=== PATIENT | male | born 1935 | race Caucasian/White ===

== ENCOUNTER 2020-02-15 10:12 | Emergency (ER) | payer MEDICARE, OTHER ==
[~2020-02-15] VITALS: Ht 175.3 cm; Wt 90.0 kg
[2020-02-15 10:36] LABS: BASO % 1 % (0-3); EOS # 0.1 x10^3/uL (0.0-0.7); EOS % 3 % (0-3); HEMATOCRIT 36.2 % (39.0-53.0); HEMOGLOBIN 12.4 g/dL (13.0-17.5); LYMPH # 0.9 x10^3/uL (1.0-4.8); LYMPH % 20 % (24-48); MEAN CORPUSCULAR HEMOGLOBIN 31 pg (25-35); MEAN CORPUSCULAR HGB CONC 34 g/dL (31-37); MEAN CORPUSCULAR VOLUME 90 fL (79-100); MONO # 0.6 x10^3/uL (0.0-1.1); MONO % 12 % (0-9); NEUT # 3.1 x10^3/uL (1.8-7.7); NEUT % 65 % (31-73); PLATELET COUNT 164 x10^3/uL (140-400); RED BLOOD COUNT 4.04 x10^6/uL (4.30-5.70); RED CELL DISTRIBUTION WIDTH 13.6 % (11.5-14.5); WHITE BLOOD COUNT 4.8 x10^3/uL (4.0-11.0)
--- NOTE | 2020-02-15 10:39 | PHYS DOC ---
General Adult HPI: HPI: 84-year-old male past medical history significant for dementia, diabetes, hypothyroidism, hyperlipidemia, hypertension and CKD, presents the ED from [facility] with concern for hyperglycemia in the 400s. History limited due to patient's dementia. Patient cannot explain events of today or recall his routine medications. Pt has no active complaints. Paperwork reviewed by myself. On no AC. Patient receives detemir insulin 22 units nightly and is on a sliding scale with aspart, can give 14 units of aspart 1 time for high glucose levels. Review of Systems: Review of Systems: ROS: Limited due to dementia Heart Score: Risk Factors: Risk Factors: DM, Current or recent (<one month) smoker, HTN, HLP, family history of CAD, obesity. Risk Scores: Score 0 - 3: 2.5% MACE over next 6 weeks - Discharge Home Score 4 - 6: 20.3% MACE over next 6 weeks - Admit for Clinical Observation Score 7 - 10: 72.7% MACE over next 6 weeks - Early Invasive Strategies Physical Exam: PE: Constitutional: Well developed, well nourished, no acute distress, non-toxic appearance. HENT: Normocephalic, atraumatic, Eyes: EOMI, conjunctiva normal, no discharge. Neck: Normal range of motion, supple, Cardiovascular: S1/2 present, regular rhythm Lungs & Thorax: Speaking in full sentences, bilateral equal chest rise, no tachypnea or increased work of breathing Abdomen: soft, no tenderness, Skin: Warm, dry, no erythema, no rash. [] Back: No tenderness, no CVA tenderness. [] Extremities: No tenderness, no cyanosis, no edema Neurologic: Alert but not oriented, normal motor function, normal sensory fun ction, no focal deficits noted. [] Psychologic: Affect normal, judgement normal, mood normal. [] Current Patient Data: Labs: Laboratory Tests Test 02/15/20 10:24 02/15/20 10:25 Glucose (Fingerstick) 136 mg/dL (70-99) H White Blood Count 4.8 x10^3/uL (4.0-11.0) Red Blood Count 4.04 x10^6/uL (4.30-5.70) L Hemoglobin 12.4 g/dL (13.0-17.5) L Hematocrit 36.2 % (39.0-53.0) L Mean Corpuscular Volume 90 fL (79-100) Mean Corpuscular Hemoglobin 31 pg (25-35) Mean Corpuscular Hemoglobin Concent 34 g/dL (31-37) Red Cell Distribution Width 13.6 % (11.5-14.5) Platelet Count 164 x10^3/uL (140-400) Neutrophils (%) (Auto) 65 % (31-73) Lymphocytes (%) (Auto) 20 % (24-48) L Monocytes (%) (Auto) 12 % (0-9) H Eosinophils (%) (Auto) 3 % (0-3) Basophils (%) (Auto) 1 % (0-3) Neutrophils # (Auto) 3.1 x10^3/uL (1.8-7.7) Lymphocytes # (Auto) 0.9 x10^3/uL (1.0-4.8) L Monocytes # (Auto) 0.6 x10^3/uL (0.0-1.1) Eosinophils # (Auto) 0.1 x10^3/uL (0.0-0.7) Basophils # (Auto) 0.0 x10^3/uL (0.0-0.2) Laboratory Tests 02/15/20 10:25 EKG: EKG: Sinus rhythm at 60 bpm, left axis deviation, QRS 122, QTC 444, right bundle bra nch block with T waves in V1, V2, V3 which could represent strain, T wave inversion in lead III, no ST elevations or ST depressions Radiology/Procedures: Radiology/Procedures: IMAGING REPORT Signed PATIENT: DEBORAH PEREZ ACCOUNT: [id number] : 1935 LOCATION: ER AGE: 84 SEX: M EXAM STATUS: PRE ER ORD. PHYSICIAN: HIAMNSHU DELONG DO REASON: hyperglycemia PROCEDURE: PORTABLE CHEST 1V EXAM: PORTABLE CHEST 1V INDICATION: Reason: hyperglycemia / Spl. Instructions: / History: . TECHNIQUE: Single view COMPARISON: None FINDINGS: Left MRI compatible dual chamber pacemaker is present. The heart size is normal. The great vessels appear unremarkable. There is no hilar or mediastinal mass. Right infrahilar hazy opacity is present. There is no pleural effusion or pneumothorax. There are no significant osseous abnormalities. IMPRESSION: Hazy right infrahilar opacity, possibly reflecting subsegmental atelectasis. Early pneumonic infiltrate not excluded. Electronically signed by: Deejay Tyler MD (02/15/2020 10:57 AM) [id number] DICTATED and SIGNED BY: DEEJAY TYLER MD DATE: 02/15/20 [id number] Course & Med Decision Making: Course & Med Decision Making Pertinent Labs and Imaging studies reviewed. (See chart for details) Patient presented to the ED with concern for hyperglycemia. I am suspecting patient was given 14 units of aspart prior to arrival. Chest x-ray concerning for possible infrahilar infiltrate. Urinalysis is contaminated. Will prescribe antibiotics to cover both uti/pna and DC back to residential facility. No concern for DKA/sepsis, does not meet sirs criteria. Labs show renal insufficiency with no prior for baseline comparison. Strict ED return precautions were given for fever, hypertension, fast heart rate, sepsis return precautions. Encouraged urgent outpatient follow-up with PMD and nephrology. Life-threatening processes were considered but are low suspicion at this time, given history and physical exam. Pt was educated on all prescription medications and adverse effects. All patient's questions were answered and pt was stable at time of discharge. Life/limb-threatening differential includes but is not limited to, end organ damage/sepsis, DKA, trauma/abuse/neglect, neurologic deficit, alcohol/drug ingestion, toxidrome, suicidal/homicidal ideations plans or attempts, psychosis or mental illness resulting in self neglect and inability to care for self. I spoken with the patient and her caregivers. I explained the patient's condition, diagnoses and treatment plan based on the information available to me at this time. I have answered the patient and her caregiver's questions and addressed any concerns. The patient and her caregivers have a good understanding of patient's diagnosis, condition and treatment plan as can be expected at this point. Vital signs have been stable. Patient's condition is stable and appropriate for discharge from the emergency department. Patient will pursue further outpatient evaluation with primary care physician or other designated or consulting physician as outlined in the discharge instructions. The patient and/or caregivers are agreeable to this plan of care and follow-up instructions have been explained in detail. The patient and/or caregivers have received these instructions in written form and have expressed an understanding of the discharge instructions. The patient and/or caregivers are aware that any significant change of condition or worsening of symptoms should prompt immediate return to this or the closest emergency department or call to 911. Libra Disclaimer: Libra Disclaimer: This electronic medical record was generated, in whole or in part, using a voice recognition dictation system. Departure Departure Impression: Primary Impression: Renal insufficiency Additional Impressions: UTI (urinary tract infection) Atypical pneumonia Disposition: 01 DC HOME SELF CARE/HOMELESS Condition: STABLE Patient Instructions: Pneumonia, Adult, Urinary Tract Infection Additional Instructions: FOLLOW UP WITH NEPHROLOGY: creatinine 1.4 today [facility] [place] Address: [address] [place] [address] EMERGENCY DEPARTMENT GENERAL DISCHARGE INSTRUCTIONS Thank you for coming to [facility] Emergency Department (ED) today and trusting us with you care. We trust that you had a positive experience in our Emergency Department. If you wish to speak to the department management, you may call the Director at [phone]. YOUR FOLLOW UP INSTRUCTIONS ARE FOLLOWS: 1. Do you have a private Doctor? If you do not have a private doctor, please ask for a resource list of physicians or clinics that may be able to assist you with follow up care. 2. The Emergency Physicain has interpreted your x-rays. The X-Ray specialist will also review them. If there is a change in the findings, you will be notified in 48 hours when at all possible. 3. A lab test or culture has been done, your results will be reviewed and you will be notified if you need a change in treatment. ADDITIONAL INSTRUCTIONS AND INFORMATION: 1. Your care today has been supervised by a physician who is specially trained in emergency care. Many problems require more than one evaluation for a complete diagnosis and treatment. We recommend that you schedule your follow up appointment as recommended to ensure complete treatment of you illness or injury. If you are unable to obtain follow up care and continue to have a problem, or if your condition worsens, we recommend that you return to the ED. 2. We are not able to safely determine your condition over the phone nor are we able to give sound medical advice over the phone. For these safety reasons, if you call for medical advice we will ask you to come to the ED for further evaluation. 3. If you have any questions regarding these discharge instructions please call the ED at [phone]. SAFETY INFORMATION: In the interest of safety, wellness, and injury prevention; we encourage you to wear your sealbelt, if you smoke; quite smoking, and we encourage family to use a protective helmet for bicycling and other sporting events that present an increased risk for head injury. IF YOUR SYMPTOMS WORSEN OR NEW SYMPTOMS DEVELOP, OR YOU HAVE CONCERNS ABOUT YOUR CONDITION; OR IF YOUR CONDITION WORSENS WHILE YOU ARE WAITING FOR YOUR FOLLOW UP A PPOINTMENT; EITHER CONTACT YOUR PRIMARY CARE DOCTOR, THE PHYSICIAN WHOSE NAME AND NUMBER YOU WERE Mai FERRIS, OR RETURN TO THE ED IMMEDIATELY. Scripts Doxycycline Hyclate (DOXYCYCLINE HYCLATE) 100 Mg Capsule 1 CAP PO BID for 14 Days, #28 CAP Prov: HIMANSHU DELONG DO 02/15/20 HIMANSHU DELONG DO Feb 15, 2020 10:39
[2020-02-15 10:46] LABS: CALCIUM 9.8 mg/dL (8.5-10.1); CREATININE 1.4 mg/dL (0.7-1.3); GFR 48.1; POTASSIUM 3.8 mmol/L (3.5-5.1)
[2020-02-15 10:52] LABS: ALBUMIN/GLOBULIN RATIO 0.9 (1.0-1.7); MAGNESIUM 1.9 mg/dL (1.8-2.4); TOTAL BILIRUBIN 0.4 mg/dL (0.2-1.0); TOTAL PROTEIN 6.3 g/dL (6.4-8.2)
[2020-02-15 10:57] LABS: BILIRUBIN,URINE SMALL (NEG); CLARITY,URINE CLEAR; COLOR,URINE YELLOW; NITRITE,URINE NEGATIVE (NEG); PH,URINE 5.5 (<5.0-8.0); PROTEIN,URINE NEGATIVE (NEG-TRACE); UROBILINOGEN,URINE 0.2 mg/dL (0.2 mg/dL)
--- NOTE | 2020-02-15 11:00 | RAD ---
EXAM: PORTABLE CHEST 1V INDICATION: Reason: hyperglycemia / Spl. Instructions: / History: . TECHNIQUE: Single view COMPARISON: None FINDINGS: Left MRI compatible dual chamber pacemaker is present. The heart size is normal. The great vessels appear unremarkable. There is no hilar or mediastinal mass. Right infrahilar hazy opacity is present. There is no pleural effusion or pneumothorax. There are no significant osseous abnormalities. IMPRESSION: Hazy right infrahilar opacity, possibly reflecting subsegmental atelectasis. Early pneumonic infiltrate not excluded. Electronically signed by: Luke Tyler MD (02/15/2020 10:57 AM) [id number]
[2020-02-15 11:18] LABS: BACTERIA,URINE FEW /HPF (0-FEW)
[2020-02-15] MEDS ORDERED: FOSFOMYCIN TROMETHAMINE 3 GM PACKET PO ONE (11:30)
[2020-02-15] MEDS ORDERED: DOXY100C2 PO (11:36)
[2020-02-15 12:46] VITALS: BP 125/64
--- NOTE | 2020-02-16 07:35 | EKG ---
[facility] [address] [place] [address] Test Date: 2020-02-15 Test Time: 10:53:00 Pat Name: DEBORAH PEREZ Department: Room: Gender: M Ironer: : 1935 Requested By: HIMANSHU DELONG Order Number: [id number] Reading MD: Fredi Wells Measurements Intervals [place] Rate: 60 P: 6 FL: 258 QRS: -45 QRSD: 122 T: 10 QT: 444 QTc: 444 Interpretive Statements ATRIAL PACED RHYTHM PROLONGED FL INTERVAL ABNORMAL LEFT AXIS DEVIATION LEFT ANTERIOR FASCICULAR BLOCK RIGHT BUNDLE BRANCH BLOCK ABNORMAL ECG RI6.01 No previous ECG available for comparison Electronically Signed On 02-17-2020 10:41:41 DIRECTOR ORACLE DATABASE by Fredi Wells
== END 2020-02-15 13:50 | disposition home or self-care (01) ==
LOC: ER 10:12
DX: E11.22 Type 2 diabetes mellitus with diabetic chronic kidney disease (principal); I12.9 Hypertensive chronic kidney disease with stage 1 through stage 4 chronic kidney disease, or unspecified chronic kidney disease; N39.0 Urinary tract infection, site not specified; J18.9 Pneumonia, unspecified organism; E11.65 Type 2 diabetes mellitus with hyperglycemia; N18.9 Chronic kidney disease, unspecified; E03.9 Hypothyroidism, unspecified; F03.90 Unspecified dementia, unspecified severity, without behavioral disturbance, psychotic disturbance, mood disturbance, and anxiety; E78.5 Hyperlipidemia, unspecified
CPT/HCPCS: 36415; 71045; 80053; 81001; 82962; 83735; 84484; 85025; 87086; 93005; 99285-25

== ENCOUNTER 2020-03-20 09:17 | Emergency (ER) | payer MEDICARE, OTHER ==
[~2020-03-20] VITALS: Ht 180.3 cm; Wt 75.0 kg
[~2020-03-20 09:17] MED LIST: ACET325T21 PO; AMLO-186 PO; ASCO500C PO; ASPI-886 PO; ATOR10TA60 PO; CARV12.511 PO; CYAN100031 PO; DONE10TA61 PO; DOXY100C2 PO; ESCITALOPRAM OX10 MG PO; FERR325T14 PO; INSU100I17 SQ; INSU100V13 SQ; LEVO150T5 PO; MAGN400T5 PO; MELA3TAB43 PO; MEMA10TA PO; MULT-246 PO; NITR100C62 PO; PANT40TA77 PO; QUET25TA5 PO; cholecalciferol PO; folic acid PO
[2020-03-20] MEDS ORDERED: IV DEXTROSE 10% 500 ML IV ONE (09:45)
[2020-03-20 09:58] LABS: CALCIUM 8.7 mg/dL (8.5-10.1); CREATININE 0.9 mg/dL (0.7-1.3); POTASSIUM 3.4 mmol/L (3.5-5.1)
[2020-03-20 09:58] LABS: BASO % 1 % (0-3); EOS # 0.4 x10^3/uL (0.0-0.7); EOS % 6 % (0-3); HEMATOCRIT 31.5 % (39.0-53.0); HEMOGLOBIN 10.7 g/dL (13.0-17.5); LYMPH # 0.6 x10^3/uL (1.0-4.8); LYMPH % 9 % (24-48); MEAN CORPUSCULAR HEMOGLOBIN 31 pg (25-35); MEAN CORPUSCULAR HGB CONC 34 g/dL (31-37); MEAN CORPUSCULAR VOLUME 92 fL (79-100); MONO # 0.4 x10^3/uL (0.0-1.1); MONO % 7 % (0-9); NEUT # 5.2 x10^3/uL (1.8-7.7); NEUT % 78 % (31-73); PLATELET COUNT 227 x10^3/uL (140-400); RED BLOOD COUNT 3.44 x10^6/uL (4.30-5.70); RED CELL DISTRIBUTION WIDTH 16.6 % (11.5-14.5); WHITE BLOOD COUNT 6.7 x10^3/uL (4.0-11.0)
[2020-03-20 10:03] LABS: ALBUMIN 2.4 g/dL (3.4-5.0); ALBUMIN/GLOBULIN RATIO 0.7 (1.0-1.7); MAGNESIUM 1.9 mg/dL (1.8-2.4); TOTAL BILIRUBIN 0.5 mg/dL (0.2-1.0); TOTAL PROTEIN 5.8 g/dL (6.4-8.2)
--- NOTE | 2020-03-20 10:31 | PHYS DOC ---
Past Medical History Past Medical History: Dementia, Diabetes-Type II, GERD, High Cholesterol, Hypothyroid Additional Past Medical Histor: CKD; covid 19 Past Surgical History: Pacemaker Smoking Status: Unknown if ever smoked Alcohol Use: None General Adult EDM: Chief Complaint: HYPOGLYCEMIA HPI: HPI: Patient is a 84 year old male who was [facility] due to low blood sugar. Patient has history of diabetic, he is on 22 unit of Levemir at night. This morning at 6:45 AM his blood sugar was 88. Patient was at the dinner this morning to have breakfast when he was acting confused. They checked his blood sugar again and it was 34. He was given Glucagon pill and EMS was called to take him here for evaluation. Patient had the same episode yesterday. Patient was diagnosed with COVID-19 INFECTION THE EARLY PART OF LAST MONTH. NO REPORT OF FEVER, NO SHORTNESS OF AIR, NO COUGH, NO CHEST PAIN, NO HEADACHE. EMS CHECKED HIS BLOOD SUGAR AND IT WAS 64. Review of Systems: Review of Systems: Constitutional: Denies fever or chills. [] Eyes: Denies change in visual acuity. [] HENT: Denies nasal congestion or sore throat. [] Respiratory: Denies cough or shortness of breath. [] Cardiovascular: Denies chest pain or edema. [] GI: Denies abdominal pain, nausea, vomiting, bloody stools or diarrhea. [] : Denies dysuria. [] Musculoskeletal: Denies back pain or joint pain. [] Integument: Denies rash. [] Neurologic: Denies headache, focal weakness or sensory changes. POSITIVE FOR GENERALIZED WEAKNESS. Endocrine: Denies polyuria or polydipsia. [] Lymphatic: Denies swollen glands. [] Psychiatric: Denies depression or anxiety. [] Heart Score: Risk Factors: Risk Factors: DM, Current or recent (<one month) smoker, HTN, HLP, family history of CAD, obesity. Risk Scores: Score 0 - 3: 2.5% MACE over next 6 weeks - Discharge Home Score 4 - 6: 20.3% MACE over next 6 weeks - Admit for Clinical Observation Score 7 - 10: 72.7% MACE over next 6 weeks - Early Invasive Strategies Current Medications: Current Medications Medications (Trade) Dose Ordered Sig/Ebony Start Time Stop Time Status Last Admin Dose Admin Dextrose 500 ml @ 0 mls/hr 1X ONCE 1/2/21 09:45 03/20/20 09:46 DC 03/20/20 09:55 999 MLS/HR Allergies: Allergies: Allergies Coded Allergies Type Severity Reaction Last Updated Verified haloperidol Allergy Severe 03/18/20 Yes olanzapine Allergy Severe 03/18/20 Yes levofloxacin Allergy Intermediate 02/15/20 Yes lisinopril Allergy Intermediate 02/15/20 Yes lorazepam Allergy Intermediate 02/15/20 Yes metronidazole Allergy Intermediate 02/15/20 Yes Physical Exam: PE: Constitutional: Well developed, well nourished, no acute distress, non-toxic appearance. [] HENT: Normocephalic, atraumatic, bilateral external ears normal, oropharynx moist, no oral exudates, nose normal. [] Eyes: PERRLA, EOMI, conjunctiva normal, no discharge. [] Neck: Normal range of motion, no tenderness, supple, no stridor. [] Cardiovascular:Heart rate regular rhythm, no murmur [] Lungs & Thorax: Bilateral breath sounds clear to auscultation [] Abdomen: Bowel sounds normal, soft, no tenderness, no masses, no pulsatile masses. [] Skin: Warm, dry, no erythema, no rash. [] Back: No tenderness, no CVA tenderness. [] Extremities: No tenderness, no cyanosis, no clubbing, ROM intact, no edema. [] Neurologic: Alert and oriented X 3, normal motor function, normal sensory function, no focal deficits noted. [] Psychologic: Affect normal, judgement normal, mood normal. [] Current Patient Data: Labs: Laboratory Tests Test 03/20/20 09:22 03/20/20 09:29 03/20/20 09:38 Glucose (Fingerstick) 56 mg/dL (70-99) L Sodium Level 145 mmol/L (136-145) Potassium Level 3.4 mmol/L (3.5-5.1) L Chloride Level 110 mmol/L (98-107) H Carbon Dioxide Level 29 mmol/L (21-32) Anion Gap 6 (6-14) Blood Urea Nitrogen 17 mg/dL (8-26) Creatinine 0.9 mg/dL (0.7-1.3) Estimated GFR (Cockcroft-Gault) 80.0 BUN/Creatinine Ratio 19 (6-20) Glucose Level 50 mg/dL (70-99) L Calcium Level 8.7 mg/dL (8.5-10.1) Magnesium Level 1.9 mg/dL (1.8-2.4) Total Bilirubin 0.5 mg/dL (0.2-1.0) Aspartate Amino Transferase (AST) 20 U/L (15-37) Alanine Aminotransferase (ALT) 19 U/L (16-63) Alkaline Phosphatase 56 U/L (46-116) Total Protein 5.8 g/dL (6.4-8.2) L Albumin 2.4 g/dL (3.4-5.0) L Albumin/Globulin Ratio 0.7 (1.0-1.7) L White Blood Count 6.7 x10^3/uL (4.0-11.0) Red Blood Count 3.44 x10^6/uL (4.30-5.70) L Hemoglobin 10.7 g/dL (13.0-17.5) L Hematocrit 31.5 % (39.0-53.0) L Mean Corpuscular Volume 92 fL (79-100) Mean Corpuscular Hemoglobin 31 pg (25-35) Mean Corpuscular Hemoglobin Concent 34 g/dL (31-37) Red Cell Distribution Width 16.6 % (11.5-14.5) H Platelet Count 227 x10^3/uL (140-400) Neutrophils (%) (Auto) 78 % (31-73) H Lymphocytes (%) (Auto) 9 % (24-48) L Monocytes (%) (Auto) 7 % (0-9) Eosinophils (%) (Auto) 6 % (0-3) H Basophils (%) (Auto) 1 % (0-3) Neutrophils # (Auto) 5.2 x10^3/uL (1.8-7.7) Lymphocytes # (Auto) 0.6 x10^3/uL (1.0-4.8) L Monocytes # (Auto) 0.4 x10^3/uL (0.0-1.1) Eosinophils # (Auto) 0.4 x10^3/uL (0.0-0.7) Basophils # (Auto) 0.0 x10^3/uL (0.0-0.2) Laboratory Tests 03/20/20 09:38 Laboratory Tests 03/20/20 09:29 Vital Signs: Vital Signs Date Time Temp Pulse Resp B/P (MAP) Pulse Ox O2 Delivery O2 Flow Rate FiO2 03/20/20 09:17 96.6 60 16 149/75 (99) 98 Room Air 96.6 EKG: EKG: [] Radiology/Procedures: Radiology/Procedures: [] Course & Med Decision Making: Course & Med Decision Making Pertinent Labs and Imaging studies reviewed. (See chart for details) Patient was given D10 IN THE ER. He was given food to eat. He was awake, alert. His blood sugar has been stabilized. Will [facility]. His [facility] doctor will need to adjust the insulin dose at n ight. He will need to eat breakfast promptly when he is awaken in the morning. Dragon Disclaimer: Dragon Disclaimer: This electronic medical record was generated, in whole or in part, using a voice recognition dictation system. Departure Departure Impression: Primary Impression: Hypoglycemia due to insulin Disposition: 01 DC HOME SELF CARE/HOMELESS Condition: STABLE Referrals: ROBYN FAUST MD (PCP) follow up with your doctor on Sunday for reevaluation Patient Instructions: Hypoglycemia (Low Blood Sugar) Additional Instructions: INSULIN DOSE AT NIGHT NEEDS TO BE REDUCED TO 15 UNITS STARTING TONIGHT. MILKA WILLIAMSON DO Mar 20, 2020 10:31
[2020-03-20 12:24] VITALS: BP 147/70
== END 2020-03-20 12:47 | disposition home or self-care (01) ==
LOC: ER 09:17
DX: E10.649 Type 1 diabetes mellitus with hypoglycemia without coma (principal); T38.3X5A Adverse effect of insulin and oral hypoglycemic [antidiabetic] drugs, initial encounter; R41.0 Disorientation, unspecified; K21.9 Gastro-esophageal reflux disease without esophagitis; E78.00 Pure hypercholesterolemia, unspecified; E03.9 Hypothyroidism, unspecified; F03.90 Unspecified dementia, unspecified severity, without behavioral disturbance, psychotic disturbance, mood disturbance, and anxiety; E10.22 Type 1 diabetes mellitus with diabetic chronic kidney disease; N18.9 Chronic kidney disease, unspecified; Z79.4 Long term (current) use of insulin; Z95.0 Presence of cardiac pacemaker; Z88.1 Allergy status to other antibiotic agents; Z88.8 Allergy status to other drugs, medicaments and biological substances; Y92.89 Other specified places as the place of occurrence of the external cause
CPT/HCPCS: 36415; 80053; 82962; 83735; 85025; 96365; 99285; J3490; 93005; 96360; 96366